=== PATIENT | male | born 1975 | race Caucasian/White ===

== ENCOUNTER → 2019-04-13 07:51 | Outpatient (CLI) | payer BC, SELFPAY ==
--- NOTE | 2019-04-13 07:56 | NM_ITS ---
History:cad, Hx of AL,CABG Procedure: Patient exercised on Kike protocol 6 minutes, resting heart rate 80 bpm, resting blood pressure 173/98, with exercise maximum heart rate achieve was 123 bpm which is 70 % of the maximum predicted heart rate and blood pressure was 178/80. Test was stopped due to shortness of breath, patient denied any complaint of chest pain. Patient has adequate exercise capacity achieved 7.0 mets of workload on treadmill, the blood pressure response to exercise was abnormal. Electrocardiogram: Resting electrocardiogram showed sinus rhythm nonspecific ST-T changes, with exercise there is less than 1.5mm ST segment depression noted from the baseline EKG. The EKG portion of the exercise Myoview is nondiagnostic as patient did not achieve the target heart rate. Cardias Stress and Resting SPECT images: Cardias Stress and Resting SPECT images were obtained using technetium 99m Myoview 29.7 mCi stress and 9.36 mCi at rest. Gated SPECT further analysis of segmental wall motion and calculation of ejection fraction also done. Cardiac stress and resting SPECT show fixed defect inferolaterally with normal contractility gated SPECT is likely secondary to soft tissue attenuation from the diaphragm, no reversible ischemia seen, the computer derived ejection fraction is over 60% with no regional wall motion abnormality, right ventricle is mildly enlarged with normal contractility. Conclusion: 1. The EKG portion of the exercise Myoview is nondiagnostic as patient did not achieve the target heart rate, patient has adequate exercise capacity achieved 7mets of workload on treadmill the blood pressure response to exercise was abnormal.. 2. No scintigraphic evidence of reversible ischemia seen, computer derived ejection fraction is 60% with no regional wall motion abnormality, right ventricle is mildly enlarged with normal contractility.
--- NOTE | 2019-04-13 11:05 | HMH.ITSHM ---
Current Home Medications as stated by this patient Thien Arndt II or retention representative. [] nocalog dexcom carvedilol clopidogrel pantoprazole lisinopril ezetimibe atorvastatin asa
== END ==
PROVIDERS: PCP Family Medicine; Visit Provider Family Medicine
DX: I25.10 Atherosclerotic heart disease of native coronary artery without angina pectoris (principal)
CPT/HCPCS: 78452; 93017; A9502

== ENCOUNTER → 2021-04-11 08:09 | Outpatient (CLI) | payer BC, SELFPAY ==
--- NOTE | 2021-04-11 | CA_ITS ---
APPROVED REPORT Exam: Exercise Treadmill Technologist: Rebekah Meek, Ht: 5 ft 10 in Wt: 292 lbs BSA: 2.45 m2 HR: 81 bpm BP: 127/67 mmHg Rhythm: Sinus rhythm Medical History Medical History: Diabetic ??? Insulin, HTN, Hyperlipidemia Medications: Carvedilol,,,,, INSULIN,,,,, AtorvaASTATIN,,,,, Lisinopri/HCTZ,,,,, Cardiac Risk Factors: Diabetes (insulin), HTN, Hyperlipidemia, FHX of CAD Stress Test Details Test: Kike HR Resting HR: 96 bpm Max Heart Rate (APMHR): 174.585071 bpm Max HR Achieved: 150 bpm Target HR (85% APMHR): 147.965719 bpm % of APMHR: 86.21 Recovery HR: 122 bpm BP Resting BP: 151/82 mmHg Max BP: 179/90 mmHg Recovery BP: 160.0/80.0 mmHg ECG Resting ECG: Sinus rhythm Clinical Exercise duration: 06:23 min Highest Stage Achieved: Exercise capacity: 7.0 METs Stress ECG Conclusion Pt excerised total of 6:23. METS 7.0. Max BP 179/90. Max HR 150. Kike protocol stopped due to SOB and back pain. No chest pain noted. No ectopy noted. Less than 1.5mm ST depression. GXT only. Appropriate BP response. Average pt tolerance. Test Summary REST . . . . . . . Sitting REST 05:46 0.0 0.0 96 . 151/ 82 . . Stage 1 01:00 10.0 1.7 105 . . . . Stage 1 02:00 10.0 1.7 115 . . . . Stage 1 03:00 10.0 1.7 120 . 167/ 89 . . Stage 2 01:00 12.0 2.5 130 . . . . Stage 2 02:00 12.0 2.5 136 . . . . Stage 2 03:00 12.0 2.5 138 . 179/ 90 . . Stage 3 00:23 14.0 3.4 148 . . . Stop exercise at 06:23 RECOVERY 01:00 0.0 0.0 132 . . . . RECOVERY 02:00 0.0 0.0 120 . 160/ 80 . . RECOVERY 03:00 0.0 0.0 114 . 160/ 80 . . RECOVERY 04:00 0.0 0.0 108 . 130/ 65 . . RECOVERY 04:06 0.0 0.0 108 . 130/ 65 . . Electronically signed by : Brandon Avina, 04/13/2021 21:07:32
== END ==
PROVIDERS: PCP Family Medicine; Visit Provider Family Medicine
DX: I25.10 Atherosclerotic heart disease of native coronary artery without angina pectoris (principal); I10 Essential (primary) hypertension
CPT/HCPCS: 93017

== ENCOUNTER → 2021-06-20 10:03 | Outpatient (CLI) | payer BC, SELFPAY | PROVIDERS: PCP Family Medicine; Visit Provider Nurse Practitioner | DX: Z01.812 Encounter for preprocedural laboratory examination (principal); Z20.822 Contact with and (suspected) exposure to COVID-19 | CPT/HCPCS: C9803; U0003; U0005 ==

== ENCOUNTER 2023-04-15 18:33 | Emergency (ER) | payer BC, SELFPAY ==
[2023-04-15 18:34] VITALS: BP 142/83; PULSE 94; RESP 16; TEMP 36.7; O2SAT 97; BMI 28.5
--- NOTE | 2023-04-15 18:42 | XR_ITS ---
PROCEDURE INFORMATION: Exam: XR Right Foot Exam date and time: 04/15/23 06:43 PM Age: 47 years old Clinical indication: Pain; Foot; Right; Additional info: Pain and swelling on lateral side of foot and plantar surface between 4th and 5th digit TECHNIQUE: Imaging protocol: Radiologic exam of the right foot. Views: 3 or more views. COMPARISON: No relevant prior studies available. FINDINGS: Bones/joints: Normal. Soft tissues: Normal. IMPRESSION: No acute findings.
--- NOTE | 2023-04-15 19:01 | EXP.UTC ---
Discharge Plan Disposition Patient Disposition: Home, Self-Care Condition: Good Prescriptions Prescriptions: New sulfamethoxazole-trimethoprim [Bactrim DS] 800-160 mg Tablet 1 tab PO BID Qty: 20 0RF cephalexin 500 mg capsule 500 mg PO QID Qty: 40 0RF mupirocin 2 % ointment 1 applic topical TID 7 Days Qty: 15 0RF Referrals Follow up/Referrals: James Coelho MD [Primary Care Provider] - See instructions Alida Calixto DPM [Staff Physician] - See instructions Activity Restrictions/Add. Instructions Additional Instructions/Restrictions: Rest the extremity, Elevate the extremity as tolerated while you are resting. Take tylenol or ibuprofen for pain. Follow up with Dr. Calixto (podiatry). Any foot wound on a diabetic person should be seen by a wood pile driver operator. I put in a referral but you need to call her office and schedule an appointment. Follow up with your regular doctor. GO TO THE ER FOR ANY WORSENING SYMPTOMS Clinical Impressions Clinical Impression: Right foot ulcer, Cellulitis of right foot, Diabetes mellitus Stand Alone Forms Stand Alone Forms: Work/School Release Instructions Patient Instructions: Cellulitis, Ceftriaxone Injection Discharge ED Provider: Jordon Peterson [facility] General Stated complaint: R Foot pain Time Seen by Provider: 04/15/23 19:00 History of Present Illness Provider Complaint: He states that for the past 5 days he has had an open area on the bottom of his right foot near the base of his 4th and 5th toes. He came in today because the area is hurting and he is starting to feel bad. He is a diabetic. He has never had trouble with wounds on his feet. Related Data Previous Rx's Medication Instructions Recorded cephalexin 500 mg capsule 500 mg PO QID #40 caps 04/15/23 mupirocin 2 % topical ointment 1 applic topical TID 7 days #15 04/15/23 grams sulfamethoxazole 800 1 tab PO BID #20 tabs 04/15/23 mg-trimethoprim 160 mg tablet (Bactrim DS) Allergies Allergy/AdvReac Type Severity Reaction Status Date / Time No Known Drug Allergies Allergy Unknown -- Unverified 08/31/17 14:26 [facility] Disclaimer: The information contained in this section may have been updated after the patient was seen, as this information can be updated by other users. Social History Smoking Status: Former smoker alcohol intake: never current occupational status: employed Travel in the last 8 weeks: None ROS Obtained: Yes All systems reviewed & no additional complaints except as documented Constitutional Constitutional: Denies chills and Denies fever(s) Eyes Eyes: Denies eye discharge ENT Ears, Nose, Mouth, and Throat: Denies dizziness, Denies otalgia and Denies sore throat Cardiovascular Cardiovascular: Denies chest pain Respiratory Respiratory: Denies shortness of breath, Denies chest congestion, Denies cough, Denies stridor and Denies wheezing Gastrointestinal Gastrointestingal: Denies nausea or vomiting Musculoskeletal Musculoskeletal: Reports system reviewed and no additional complaints, except as documented and Denies arthralgias Integumentary/Breasts Skin/Breast: Denies rash Neurologic Neurologic: Denies dizziness and Denies paresthesias Allergic/Immunologic Allergic/Immunologic: Denies wheezing Physical Exam General General appearance: alert and in no apparent distress Head Head exam: atraumatic, normocephalic and normal inspection Eye Eye exam: Present normal appearance, PERRL and EOMI ENT ENT exam: Present normal exam, normal oropharynx, mucous membranes moist, TM's normal bilaterally and normal external ear exam Neck Neck exam: Present normal inspection, full ROM and trachea midline; Absent meningismus or lymphadenopathy Chest Chest inspection: Present normal inspection and symmetric chest wall rise; Absent tenderness Respiratory Respiratory exam: Present normal lung sounds bilaterally; Absent r
[2023-04-15 19:47] VITALS: BP 142/83; PULSE 94; RESP 16; TEMP 36.7; O2SAT 97
== END 2023-04-15 19:48 | disposition home or self-care (01) ==
PROVIDERS: Emergency Provider Nurse Practitioner Family; PCP Family Medicine
DX: E11.622 Type 2 diabetes mellitus with other skin ulcer (principal); L03.115 Cellulitis of right lower limb; Z87.891 Personal history of nicotine dependence; L97.519 Non-pressure chronic ulcer of other part of right foot with unspecified severity; B96.89 Other specified bacterial agents as the cause of diseases classified elsewhere
CPT/HCPCS: 73630; 87070; 87077; 87186; 87205; 96372; 99204; 99212; G0463; J0696

== ENCOUNTER 2024-02-14 10:38 | Outpatient (CLI) | payer BC, SELFPAY ==
--- NOTE | 2024-02-14 10:48 | XR_ITS ---
FINAL REPORT CLINICAL HISTORY: COUGH COMPARISON: None FINDINGS: Two views of the chest were obtained. The heart size and pulmonary vascularity are within normal limits. The mediastinum is normal. Bibasilar opacities are present greater on the left than on the right, atelectasis versus pneumonia. There is no pneumothorax. The bony thorax is intact. IMPRESSION: Bibasilar opacities greater on the left than on the right, atelectasis versus pneumonia. Reviewed, Interpreted and Dictated by Satya Garcia III, MD Transcribed by Aixa Bautista Authenticated and [facility]
== END 2024-02-14 23:59 | disposition home or self-care (01) ==
LOC: RAD 10:39
PROVIDERS: PCP Family Medicine; Visit Provider Family Medicine
DX: R05.1 Acute cough (principal)
CPT/HCPCS: 71046

== ENCOUNTER 2025-02-22 07:15 | Outpatient (CLI) | payer BC, SELFPAY ==
--- NOTE | 2025-02-22 | MR_ITS ---
FINAL REPORT CLINICAL HISTORY: MRCP protocol, r/o PANCREATITIS RUQ pain COMPARISON: None FINDINGS: Multiplanar MR imaging of the abdomen was performed using the MRCP protocol. 3-D images were also obtained and reviewed. Overall image quality is degraded by patient respiratory motion. The gallbladder is not identified. Common duct is normal in size. The pancreatic duct is normal in size. No localized signal abnormality identified. Review of the remainder of the abdomen reveals no evidence of mass or adenopathy. No abnormal fluid collection is seen. IMPRESSION: No evidence of choledocholithiasis or obstruction. Reviewed, Interpreted and Dictated by Moise Oro MD Transcribed by Marybel Lindo Authenticated and . [facility]
== END 2025-02-22 23:59 | disposition home or self-care (01) ==
LOC: RAD 07:16
PROVIDERS: PCP Family Medicine; Visit Provider Family Medicine
DX: K85.90 Acute pancreatitis without necrosis or infection, unspecified (principal)
CPT/HCPCS: 74181; 76376

== ENCOUNTER 2025-05-10 13:23 | Day surgery (SDC) | payer BC, SELFPAY ==
[2025-05-08 13:57] VITALS: BMI 37.5
--- NOTE | 2025-05-09 15:57 | EXP.HP ---
History of Present Illness *Admission Date: 05/10/25 *History of present illness: Mr. Moreno is a 49-year-old gentleman who is here for screening colonoscopy secondary to a positive Cologuard test (03/13/2025). The patient has never had a colonoscopy. The examination is deemed medically necessary for screening colonoscopy. The patient has been seen, interviewed and examined prior to the procedure by both myself and the anesthesia provider. [facility] Disclaimer: The information contained in this section may have been updated after the patient was seen, as this information can be updated by other users. Medical History Diabetes mellitus HLD (hyperlipidemia) HTN (hypertension) Coronary artery disease Abnormal electrocardiogram [ECG] [EKG] Surgical History Hx of tonsillectomy History of cholecystectomy History of cataract extraction Hx of CABG Family History Other No significant family history Social History Smoking Status: Former smoker alcohol intake: never current occupational status: employed Travel in the last 8 weeks?: None Have you lived/traveled outside [place] in past 30 days?: No Contact w/someone who lives/traveled outside US past 30 days?: No Exposure to someone with infectious disease in past 14 days?: No Do you have a fever (greater than 100.4 F or 38 C)?: No Have you tested positive for COVID-19?: No Exposed to someone with COVID-19 in past 14 days?: No Do you have a sore throat?: No Do you have a cough?: No Do you have any weakness?: No Do you have any diarrhea?: No Are you experiencing any unusual bleeding?: No Do you have any muscle aches/pain?: No Do you have any abdominal pain?: No Are you experiencing loss of taste or smell?: No Review of Systems Review of Systems Review of systems (narrative): Negative *Cardiovascular Comments: Negative *Gastrointestinal Comments: Negative *Genitourinary Comments: Negative *Musculoskeletal Comments: Negative *Neurologic Comments: Negative Meds Home Medications and Allergies Home Medications ?Medication ?Instructions ?Recorded ?Confirmed ?Type atorvastatin 80 mg tablet 80 mg PO DAILY 04/03/25 05/10/25 History blood-glucose sensor (Dexcom G7 #1 ea 04/03/25 04/03/25 History Sensor device) carvedilol 25 mg tablet 25 mg PO Q12H 04/03/25 05/10/25 History ezetimibe 10 mg tablet (Zetia) 10 mg PO DAILY 04/03/25 05/10/25 History lisinopril 40 mg tablet 40 mg PO DAILY 04/03/25 05/10/25 History rivaroxaban 2.5 mg tablet (Xarelto) 2.5 mg PO BID 04/03/25 05/10/25 History semaglutide (weight loss) 0.5 0.5 mg SQ WEEKLY 04/03/25 05/10/25 History mg/0.5 mL subcutaneous pen injector (Wegovy) sodium,potassium,mag sulfates 17.5 See Rx Instructions PO .COMPLEX 05/03/25 05/08/25 Rx gram-3.13 gram-1.6 gram oral soln #354 mL (Suprep Bowel Prep Kit) calcium phosphate,dibasic 77 1 tab PO DAILY 05/10/25 05/10/25 History mg-vitamin D3 400 unit tablet insulin aspart U-100 100 unit/mL 1 sliding scale dose continuous 05/10/25 05/10/25 History subcutaneous solution (Novolog subcutaneous infusion DAILYP PRN U-100 Insulin aspart) Hyperglycemia New Prescriptions to Start Prescriptions: Allergies Allergy/AdvReac Type Severity Reaction Status Date / Time No Known Drug Allergies Allergy Unknown -- Verified 05/10/25 13:58 Exam Data for Last 24 hours I & O for Last 24 hours: Intake & Output 05/06/25 05/07/25 05/08/25 05/09/25 23:59 23:59 23:59 23:59 Weight 277 lb *Routine HEENT Exam Head: Present normocephalic Eye: Present EOMI and PERRL ENT: Present mucous membranes moist *Routine Neck Exam Neck: Present supple *Routine Respiratory Exam Respiratory: Present CTA bilaterally *Routine Cardiovascular Exam Cardiovascular: Present RRR *Routine Abdominal Exam Abdominal: Present soft and normoactive bowel sounds; Absent tenderness *Routine Rectal Exam Rectal:: deferred *Routine Genitalia Exam Genitalia:: deferred *Routine Extremities Exam Extremities: Absent cyanosis, clubbing or edema *Routine Skin Exam Skin: Present warm; Absent rash *Routine Neurological Exam Neurological: Present alert and oriented X3 Assessment and Plan *Assessment and plan (1) Positive colorectal cancer screening using Cologuard test: Status: Acute Category: Medical Code(s): R19.5 - Other fecal abnormalities (2) Encounter for screening colonoscopy: Status: Acute Category: Medical Code(s): Z12.11 - Encounter for screening for malignant neoplasm of colon Plan A/P: 1. Positive Cologuard test is the preprocedural diagnosis. The patient will be anesthetized/sedated using MAC sedation. The patient has been seen and examined. Cardiac and lung assessment prior to the examination is stable. Proceed with planned screening colonoscopy.
[2025-05-10 14:06] VITALS: BP 160/76; PULSE 63; RESP 18; TEMP 36.1; O2SAT 98
[2025-05-10] MEDS: LACTATED RINGERS 1000ML 1,000 ML 50 ML IV (14:17)
[2025-05-10 14:25] LABS: POC Glucose,Bedside 105 gm/dL (70-110)
--- NOTE | 2025-05-10 14:27 | P.PNANES_ITS ---
[facility] Disclaimer: The information contained in this section may have been updated after the patient was seen, as this information can be updated by other users. Medical History Diabetes mellitus HLD (hyperlipidemia) HTN (hypertension) Coronary artery disease Abnormal electrocardiogram [ECG] [EKG] Surgical History Hx of tonsillectomy History of cholecystectomy History of cataract extraction Hx of CABG Family History Other No significant family history Social History Smoking Status: Former smoker alcohol intake: never substance use type: denies use current occupational status: employed Travel in the last 8 weeks?: None [facility] Anesthesia Checklist Patient Identification Patient Identification: Arm Band and Family Structural Data Admitted From: Home Planned Operative Procedure/s: COLONOSCOPY NPO Status Verified Time NPO: 00:00 Additional verifications Patient : No Anesthesia Reactions: No Hx Blood Transfusions: No Blood Transfusion Reaction: No Cephalosporin Allergy: No Previous Colonoscopy: Yes Airway Assessment Mallampati Score:: Class II C-Spine Mobility Assessed: Yes TMJ Mobility Assessed: Yes Dentition: Edentulous Neurological Assessment Level of Consciousness: Awake, Alert, Appropriate and Follows Commands Hx Seizures: No Numbness or tingling in extremities: No Anesthesia Plan Anesthesia Risk discussed: Yes ASA Class: III Anesthesia Type: MAC Preoperative Comments Pre-Operative Comments: CABG 2113, OFF BLOOD THINNERS FOR 8 DAYS.
--- NOTE | 2025-05-10 14:28 | HMH.PROCNOTE ---
[facility] Procedure Note Date: 05/10/25 Time: 14:49 Procedure Note:: Colonoscopy Procedure Report: Colonoscopy with cold snare polypectomy Endoscopist: Alan Jenkins II, MD Referring physician: James Coelho MD Date of Procedure: May 10, 2025 Equipment: Olympus [id number] adult colonoscope Sedation: MAC sedation Indication: Mr. Moreno is a 49-year-old gentleman who is here for screening colonoscopy secondary to a positive Cologuard test (03/13/2025). The patient has never had a colonoscopy. The examination is deemed medically necessary for screening colonoscopy. The patient reports no abdominal pain, weight loss, change in his bowel habits or rectal bleeding. He reports no family history of colon cancer. Procedure: Prior to the procedure, a history and physical exam was performed, and patient's medications and allergies were reviewed. The risks, benefits and alternatives of the sedation and procedure were discussed with the patient. All questions were answered and informed consent was obtained. The patient was brought to the procedure room. Patient identification and proposed procedure were verified by the physician and the nurse. The patient was placed in a left lateral decubitus position and the scope was passed under direct vision. Throughout the procedure, the patient's blood pressure, pulse, and oxygen saturations were monitored continuously. The colonoscopy was accomplished without difficulty. The patient tolerated the procedure well. Findings: On digital rectal examination there was normal rectal tone. There were no external hemorrhoids. The prostate was 2+, smooth, soft, symmetric without nodules. The colonoscope was introduced through the anal canal to the rectum and advanced to the cecum. The ileocecal valve and appendiceal orifice were identified. The scope was advanced a short distance into the ileum which appeared grossly normal. The scope was then withdrawn into the colon. There were 2 colon polyps (transverse x 2 (4 and 6 mm)). Both of these were removed via cold snare polypectomy. The remaining cecum, ascending, transverse, descending, sigmoid and rectum were grossly normal. There were no mucosal abnormalities identified. Upon retroflexion within the rectum there were grade 2 internal hemorrhoids. The preparation was excellent throughout with Oakley Preparation Score of 9. The cecal time was 12 minutes. Impression: 1. Transverse colon polyps x 2 (4 and 6 mm) 2. Grade 2 internal hemorrhoids Plan: I will follow-up the polyp histology and recommend repeat surveillance/screening colonoscopy again in 5 years.
[2025-05-10 15:00] VITALS: BP 101/40; PULSE 65; RESP 18; TEMP 36.1; O2SAT 98
[2025-05-10 15:10] VITALS: BP 110/55; PULSE 61; RESP 18; O2SAT 95
[2025-05-10 15:20] VITALS: BP 107/69; PULSE 65; RESP 16; O2SAT 95
[2025-05-10 15:28] VITALS: BP 111/59; PULSE 69; RESP 18; O2SAT 95
== END 2025-05-10 15:28 | disposition home or self-care (01) ==
PROVIDERS: PCP Family Medicine; Visit Provider Internal Medicine Gastroenterology
PROC: 0DJD8ZZ Inspection of Lower Intestinal Tract, Via Natural or Artificial Opening Endoscopic (ICD-10-PCS; CPT 45378; principal; 2025-05-10 15:00)
DX: Z12.11 Encounter for screening for malignant neoplasm of colon (principal); K51.40 Inflammatory polyps of colon without complications; R19.5 Other fecal abnormalities; K64.1 Second degree hemorrhoids; E11.9 Type 2 diabetes mellitus without complications; E78.5 Hyperlipidemia, unspecified; I10 Essential (primary) hypertension; I25.10 Atherosclerotic heart disease of native coronary artery without angina pectoris; Z95.1 Presence of aortocoronary bypass graft; Z87.891 Personal history of nicotine dependence; Z79.899 Other long term (current) drug therapy; Z79.01 Long term (current) use of anticoagulants; Z79.4 Long term (current) use of insulin; Z79.85 Long-term (current) use of injectable non-insulin antidiabetic drugs
CPT/HCPCS: 45385; 82962; J2003; J2704; J7120